=== PATIENT | male | born 1960 | race Caucasian/White ===

== ENCOUNTER 2022-01-26 15:31 | Emergency (ER) | payer OTHER, SELFPAY ==
[2022-01-26 16:10] VITALS: BP 126/67; PULSE 77; RESP 18; O2SAT 98; BMI 28.8
--- NOTE | 2022-01-26 16:12 | ECG_ITS ---
Test Reason : ALTERED MENTAL Blood Pressure : / mmHG Vent. Rate : 084 BPM Atrial Rate : 084 BPM P-R Int : 152 ms QRS Dur : 094 ms QT Int : 364 ms P-R-T Axes : 041 009 022 degrees QTc Int : 430 ms Normal sinus rhythm Normal ECG No previous ECGs available Referred By: Ramírez Stephen Electronically Signed By:AUREA GREGORIO MD
--- NOTE | 2022-01-26 16:14 | ED_ITS ---
HPI - Altered Mental Status General Chief Complaint: General Medical <Ramírez Stephen MD - Last Filed: 01/26/22 16:17> Stated Complaint: Lethargic/Diabetic <Ramírez Stephen MD - Last Filed: 01/26/22 16:17> Time Seen by Provider: 01/26/22 16:23 <Ramírez Stephen MD - Last Filed: 01/26/22 16:17> Source: patient <Dennis Rodriguez MD - Last Filed: 01/27/22 00:40> Mode of arrival: ambulatory <Dennis Rodriguez MD - Last Filed: 01/27/22 00:40> Limitations: no limitations <Dennis Rodriguez MD - Last Filed: 01/27/22 00:40> History of Present Illness HPI narrative: Patient history of diabetes insulin dependent takes 74 units of Lantus in the nighttime last night he took the insulin without eating supper, in the morning he took his metformin was at work confused lethargic brought by his co- worker patient does not remember how he came to the ER on arrival patient was drowsy blood sugar was only 35 in the triage patient was given OJ and dextrose 50 in few minutes patient back to normal but does not remember what happened to him no seizure activity no shortness of breath no nausea no vomiting no abdominal pain no chest pain shortness breath repeat blood sugar was 153 <Dennis Rodriguez MD - Last Filed: 01/27/22 00:40> Related Data Allergies/Adverse Reactions: Allergies Allergy/AdvReac Type Severity Reaction Status Date / Time No Known Allergies Allergy Verified 01/26/22 16:11 <Ramírez Stephen MD - Last Filed: 01/26/22 16:17> Review of Systems Review of Systems: Yes all other systems are reviewed and are negative <Dennis Rodriguez MD - Last Filed: 01/27/22 00:40> [facility] Social History Social History: Social History Advance Directives: No Advance Directives Information Provided: No <Ramírez Stephen MD - Last Filed: 01/26/22 16:17> Physical Exam ED Vital Signs: Vital Signs - 24 hr 01/26/22 16:10 01/26/22 18:00 Temperature 97.5 F Pulse Rate 77 84 Respiratory Rate 18 14 Blood Pressure 126/67 164/78 H Pulse Oximetry 98 94 Oxygen Delivery Method Room Air Room Air BMI result Body Mass Index 28.8 <Ramírez Stephen MD - Last Filed: 01/26/22 16:17> Vital Signs - 24 hr 01/26/22 16:10 01/26/22 18:00 Temperature 97.5 F Pulse Rate 77 84 Respiratory Rate 18 14 Blood Pressure 126/67 164/78 H Pulse Oximetry 98 94 Oxygen Delivery Method Room Air Room Air BMI result Body Mass Index 28.8 <Dennis Rodriguez MD - Last Filed: 01/27/22 00:40> Appearance: Alert. Oriented X3. No acute distress. Eyes: PERRLA, No Nystagmus ENT: Pharynx normal. Oral Mucosa moist Neck: Normal inspection. Neck supple. CVS: Normal heart rate and rhythm. Pulses normal. Respiratory: No respiratory distress. Equal air entry bilateral, no wheezing/rales/rhonchi Abdomen: Soft and nontender. Bowel sounds are present, no mass palpable, no CVA tenderness Skin: Skin warm and dry. Normal skin color. Normal skin turgor. Extremities: No lower extremity edema. No calf tenderness Neuro: Oriented X 3. No motor deficit. No sensory deficit.No cerebellar signs , cranial nerves II-XII intact <Dennis Rodriguez MD - Last Filed: 01/27/22 00:40> Course Reevaluation(s) Reevaluation #1: 61-year-old male history of diabetes brought in by his school or her for noticeable change mental status and becoming lethargic, in triage patient is disoriented, lethargic but arousable, patient cannot carry on meaningful conversation, blood sugar was checked was 35 in triage. no trauma was reported by the co-worker. Patient was able to drink orange juice in triage D 50 was ordered patient was transferred to room 4 in the ED. <Ramírez Stephen MD - Last Filed: 01/26/22 16:17> Time: 16:14 <Ramírez Stephen MD - Last Filed: 01/26/22 16:17> Medications Administered Discontinued Medications Generic Name Dose Route Start Last Admin Trade Name Freq PRN Reason Stop Dose Admin Dextrose 25 gm 01/26/22 16:11 01/26/22 16:26 Dextrose 50 % 25 Gm/50 Ml Syringe IVPUSH 01/26/22 16:12 25 gm ONCE ONE Administration Sodium Chloride 1,000 mls @ 999 mls/hr 01/26/22 16:11 01/26/22 19:21 Ns IV 01/26/22 17:11 Infused .Q1H1M ONE Infusion <Ramírez Stephen MD - Last Filed: 01/26/22 16:17> Medications Administered Discontinued Medications Generic Name Dose Route Start Last Admin Trade Name Sangita PRN Reason Stop Dose Admin Dextrose 25 gm 01/26/22 16:11 01/26/22 16:26 Dextrose 50 % 25 Gm/50 Ml Syringe IVPUSH 01/26/22 16:12 25 gm ONCE ONE Administration Sodium Chloride 1,000 mls @ 999 mls/hr 01/26/22 16:11 01/26/22 19:21 Ns IV 01/26/22 17:11 Infused .Q1H1M ONE Infusion <Dennis Rodriguez MD - Last Filed: 01/27/22 00:40> MDM - Altered Mental Status MDM Narrative Medical decision making narrative: 184Patient's co-worker came says that patient was little confused wobbly while walking no fall no seizures no nausea or vomiting patient confused does not know how he came to the ER at this time patient is feeling back to normal had food in the ER will discharge patient home friend will keep an eye on the patient and recheck blood sugar at home <Dennis Rodriguez MD - Last Filed: 01/27/22 00:40> Lab Data Attestation: I reviewed the patient's lab results. <Dennis Rodriguez MD - Last Filed: 01/27/22 00:40> Result diagrams: : 01/26/22 16:24 01/26/22 16:24 <Ramírez Stephen MD - Last Filed: 01/26/22 16:17> Labs: Lab Results 01/26/22 01/26/22 01/26/22 Range/Units 16:12 16:24 16:24 WBC 12.5 H (4.8-10.8) X10*3/uL RBC 4.66 (4.60-5.80) X10*6/uL Hgb 12.8 L (14.0-18.0) g/dl Hct 40.1 L (42.0-52.0) % MCV 86.1 (80.0-98.0) fL MCH 27.5 (27.0-33.0) pg MCHC 31.9 (31.0-36.0) g/dl RDW 14.4 (11.0-16.0) % Plt Count 398 (160-400) X10*3/uL MPV 9.8 (9.4-12.4) fL Immature Gran % (Auto) 0.5 H (0.0-0.4) % Neut % (Auto) 68.9 (45-73) % Lymph % (Auto) 19.7 L (20-40) % [place] % (Auto) 10.1 (2-11) % Eos % (Auto) 0.6 (0-4) % Baso % (Auto) 0.2 (0-2) % Lymph # (Auto) 2.5 (1.2-4.9) X10*3/uL [place] # (Auto) 1.3 H (0.1-1.2) X10*3/uL Eos # (Auto) 0.1 (0.0-0.4) X10*3/uL Baso # (Auto) 0.0 (0.0-0.2) X10*3/uL Abs Immat Gran (auto) 0.06 H (0.00-0.03) X10*3/uL Absolute Neuts (auto) 8.6 H (2.0-8.3) x10*3/uL Absolute Nucleated RBC 0.000 (0.0-0.012) X10*3/uL Nucleated RBC % (auto) 0.0 (0.0-0.2) /100WBC Sodium 141 (135-145) mmol/L Potassium 4.1 (3.3-5.1) mmol/L Chloride 105 (96-108) mmol/L Carbon Dioxide 24 (22-29) mmol/L Anion Gap 16 (12-20) BUN 39 H (9-16) mg/dL Creatinine 2.18 H (0.5-1.4) mg/dL Estim Creat Clear Calc 45.3 Estimated GFR 31 POC Glucose 35 L* (60-115) mg/dL Random Glucose 32 L* (60-115) mg/dL Calcium 8.9 (8.4-10.2) mg/dL Total Bilirubin 0.3 (0.0-1.0) mg/dL Direct Bilirubin < 0.2 (0.0-0.5) mg/dL AST 38 H (5-37) U/L ALT 36 (0-40) U/L Alkaline Phosphatase 78 (39-117) U/L Troponin I High Sens (<3.5-35.0) ng/L Total Protein 6.6 (6.5-8.0) g/dL Albumin 3.7 (3.5-5.0) g/dL Lipase 22 (8-78) U/L Urine Color Urine Appearance Urine pH (5.0-9.0) Ur Specific [place] (1.005-1.025) Urine Protein (Neg-Trace) mg/dL Urine Glucose (UA) (Negative) mg/dL Urine Ketones (Negative) mg/dL Urine Blood (Negative) Urine Nitrite (Negative) Ur Leukocyte Esterase (Negative) Urine RBC (0-2) /HPF Urine WBC (0-5) /HPF Ur Squamous Epith Cells (0-2) /HPF Urine Bacteria (None Seen) Hyaline Casts (0-2) /LPF COVID-19 (PEDRO) (Negative) COVID-19 Clin Com 01/26/22 01/26/22 01/26/22 Range/Units 16:24 16:38 18:13 WBC (4.8-10.8) X10*3/uL RBC (4.60-5.80) X10*6/uL Hgb (14.0-18.0) g/dl Hct (42.0-52.0) % MCV (80.0-98.0) fL MCH (27.0-33.0) pg MCHC (31.0-36.0) g/dl RDW (11.0-16.0) % Plt Count (160-400) X10*3/uL MPV (9.4-12.4) fL Immature Gran % (Auto) (0.0-0.4) % Neut % (Auto) (45-73) % Lymph % (Auto) (20-40) % [place] % (Auto) (2-11) % Eos % (Auto) (0-4) % Baso % (Auto) (0-2) % Lymph # (Auto) (1.2-4.9) X10*3/uL [place] # (Auto) (0.1-1.2) X10*3/uL Eos # (Auto) (0.0-0.4) X10*3/uL Baso # (Auto) (0.0-0.2) X10*3/uL Abs Immat Gran (auto) (0.00-0.03) X10*3/uL Absolute Neuts (auto) (2.0-8.3) x10*3/uL Absolute Nucleated RBC (0.0-0.012) X10*3/uL Nucleated RBC % (auto) (0.0-0.2) /100WBC Sodium (135-145) mmol/L Potassium (3.3-5.1) mmol/L Chloride (96-108) mmol/L Carbon Dioxide (22-29) mmol/L Anion Gap (12-20) BUN (9-16) mg/dL Creatinine (0.5-1.4) mg/dL Estim Creat Clear Calc Estimated GFR POC Glucose 153 H (60-115) mg/dL Random Glucose (60-115) mg/dL Calcium (8.4-10.2) mg/dL Total Bilirubin (0.0-1.0) mg/dL Direct Bilirubin (0.0-0.5) mg/dL AST (5-37) U/L ALT (0-40) U/L Alkaline Phosphatase (39-117) U/L Troponin I High Sens 10.1 (<3.5-35.0) ng/L Total Protein (6.5-8.0) g/dL Albumin (3.5-5.0) g/dL Lipase (8-78) U/L Urine Color Urine Appearance Urine pH (5.0-9.0) Ur Specific [place] (1.005-1.025) Urine Protein (Neg-Trace) mg/dL Urine Glucose (UA) (Negative) mg/dL Urine Ketones (Negative) mg/dL Urine Blood (Negative) Urine Nitrite (Negative) Ur Leukocyte Esterase (Negative) Urine RBC (0-2) /HPF Urine WBC (0-5) /HPF Ur Squamous Epith Cells (0-2) /HPF Urine Bacteria (None Seen) Hyaline Casts (0-2) /LPF COVID-19 (PEDRO) Negative (Negative) COVID-19 Clin Com See Note 01/26/22 01/26/22 01/26/22 Range/Units 18:13 18:53 19:14 WBC (4.8-10.8) X10*3/uL RBC (4.60-5.80) X10*6/uL Hgb (14.0-18.0) g/dl Hct (42.0-52.0) % MCV (80.0-98.0) fL MCH (27.0-33.0) pg MCHC (31.0-36.0) g/dl RDW (11.0-16.0) % Plt Count (160-400) X10*3/uL MPV (9.4-12.4) fL Immature Gran % (Auto) (0.0-0.4) % Neut % (Auto) (45-73) % Lymph % (Auto) (20-40) % Pershing % (Auto) (2-11) % Eos % (Auto) (0-4) % Baso % (Auto) (0-2) % Lymph # (Auto) (1.2-4.9) X10*3/uL [place] # (Auto) (0.1-1.2) X10*3/uL Eos # (Auto) (0.0-0.4) X10*3/uL Baso # (Auto) (0.0-0.2) X10*3/uL Abs Immat Gran (auto) (0.00-0.03) X10*3/uL Absolute Neuts (auto) (2.0-8.3) x10*3/uL Absolute Nucleated RBC (0.0-0.012) X10*3/uL Nucleated RBC % (auto) (0.0-0.2) /100WBC Sodium (135-145) mmol/L Potassium (3.3-5.1) mmol/L Chloride (96-108) mmol/L Carbon Dioxide (22-29) mmol/L Anion Gap (12-20) BUN (9-16) mg/dL Creatinine (0.5-1.4) mg/dL Estim Creat Clear Calc Estimated GFR POC Glucose 114 104 (60-115) mg/dL Random Glucose (60-115) mg/dL Calcium (8.4-10.2) mg/dL Total Bilirubin (0.0-1.0) mg/dL Direct Bilirubin (0.0-0.5) mg/dL AST (5-37) U/L ALT (0-40) U/L Alkaline Phosphatase (39-117) U/L Troponin I High Sens (<3.5-35.0) ng/L Total Protein (6.5-8.0) g/dL Albumin (3.5-5.0) g/dL Lipase (8-78) U/L Urine Color Yellow Urine Appearance Clear Urine pH 6.0 (5.0-9.0) Ur Specific [place] <= 1.005 (1.005-1.025) Urine Protein 100 (2+) H (Neg-Trace) mg/dL Urine Glucose (UA) Negative (Negative) mg/dL Urine Ketones Negative (Negative) mg/dL Urine Blood Small (1+) H (Negative) Urine Nitrite Negative (Negative) Ur Leukocyte Esterase Trace H (Negative) Urine RBC 0-2 (0-2) /HPF Urine WBC 0-5 (0-5) /HPF Ur Squamous Epith Cells 0-2 (0-2) /HPF Urine Bacteria None Seen (None Seen) Hyaline Casts 0-2 (0-2) /LPF COVID-19 (PEDRO) (Negative) COVID-19 Clin Com <Ramírez Stephen MD - Last Filed: 01/26/22 16:17> Lab Results 01/26/22 01/26/22 01/26/22 Range/Units 16:12 16:24 16:24 WBC 12.5 H (4.8-10.8) X10*3/uL RBC 4.66 (4.60-5.80) X10*6/uL Hgb 12.8 L (14.0-18.0) g/dl Hct 40.1 L (42.0-52.0) % MCV 86.1 (80.0-98.0) fL MCH 27.5 (27.0-33.0) pg MCHC 31.9 (31.0-36.0) g/dl RDW 14.4 (11.0-16.0) % Plt Count 398 (160-400) X10*3/uL MPV 9.8 (9.4-12.4) fL Immature Gran % (Auto) 0.5 H (0.0-0.4) % Neut % (Auto) 68.9 (45-73) % Lymph % (Auto) 19.7 L (20-40) % [place]hing % (Auto) 10.1 (2-11) % Eos % (Auto) 0.6 (0-4) % Baso % (Auto) 0.2 (0-2) % Lymph # (Auto) 2.5 (1.2-4.9) X10*3/uL [place] # (Auto) 1.3 H (0.1-1.2) X10*3/uL Eos # (Auto) 0.1 (0.0-0.4) X10*3/uL Baso # (Auto) 0.0 (0.0-0.2) X10*3/uL Abs Immat Gran (auto) 0.06 H (0.00-0.03) X10*3/uL Absolute Neuts (auto) 8.6 H (2.0-8.3) x10*3/uL Absolute Nucleated RBC 0.000 (0.0-0.012) X10*3/uL Nucleated RBC % (auto) 0.0 (0.0-0.2) /100WBC Sodium 141 (135-145) mmol/L Potassium 4.1 (3.3-5.1) mmol/L Chloride 105 (96-108) mmol/L Carbon Dioxide 24 (22-29) mmol/L Anion Gap 16 (12-20) BUN 39 H (9-16) mg/dL Creatinine 2.18 H (0.5-1.4) mg/dL Estim Creat Clear Calc 45.3 Estimated GFR 31 POC Glucose 35 L* (60-115) mg/dL Random Glucose 32 L* (60-115) mg/dL Calcium 8.9 (8.4-10.2) mg/dL Total Bilirubin 0.3 (0.0-1.0) mg/dL Direct Bilirubin < 0.2 (0.0-0.5) mg/dL AST 38 H (5-37) U/L ALT 36 (0-40) U/L Alkaline Phosphatase 78 (39-117) U/L Troponin I High Sens (<3.5-35.0) ng/L Total Protein 6.6 (6.5-8.0) g/dL Albumin 3.7 (3.5-5.0) g/dL Lipase 22 (8-78) U/L Urine Color Urine Appearance Urine pH (5.0-9.0) Ur Specific [place] (1.005-1.025) Urine Protein (Neg-Trace) mg/dL Urine Glucose (UA) (Negative) mg/dL Urine Ketones (Negative) mg/dL Urine Blood (Negative) Urine Nitrite (Negative) Ur Leukocyte Esterase (Negative) Urine RBC (0-2) /HPF Urine WBC (0-5) /HPF Ur Squamous Epith Cells (0-2) /HPF Urine Bacteria (None Seen) Hyaline Casts (0-2) /LPF COVID-19 (PEDRO) (Negative) COVID-19 Clin Com 01/26/22 01/26/22 01/26/22 Range/Units 16:24 16:38 18:13 WBC (4.8-10.8) X10*3/uL RBC (4.60-5.80) X10*6/uL Hgb (14.0-18.0) g/dl Hct (42.0-52.0) % MCV (80.0-98.0) fL MCH (27.0-33.0) pg MCHC (31.0-36.0) g/dl RDW (11.0-16.0) % Plt Count (160-400) X10*3/uL MPV (9.4-12.4) fL Immature Gran % (Auto) (0.0-0.4) % Neut % (Auto) (45-73) % Lymph % (Auto) (20-40) % [place] % (Auto) (2-11) % Eos % (Auto) (0-4) % Baso % (Auto) (0-2) % Lymph # (Auto) (1.2-4.9) X10*3/uL [place] # (Auto) (0.1-1.2) X10*3/uL Eos # (Auto) (0.0-0.4) X10*3/uL Baso # (Auto) (0.0-0.2) X10*3/uL Abs Immat Gran (auto) (0.00-0.03) X10*3/uL Absolute Neuts (auto) (2.0-8.3) x10*3/uL Absolute Nucleated RBC (0.0-0.012) X10*3/uL Nucleated RBC % (auto) (0.0-0.2) /100WBC Sodium (135-145) mmol/L Potassium (3.3-5.1) mmol/L Chloride (96-108) mmol/L Carbon Dioxide (22-29) mmol/L Anion Gap (12-20) BUN (9-16) mg/dL Creatinine (0.5-1.4) mg/dL Estim Creat Clear Calc Estimated GFR POC Glucose 153 H (60-115) mg/dL Random Glucose (60-115) mg/dL Calcium (8.4-10.2) mg/dL Total Bilirubin (0.0-1.0) mg/dL Direct Bilirubin (0.0-0.5) mg/dL AST (5-37) U/L ALT (0-40) U/L Alkaline Phosphatase (39-117) U/L Troponin I High Sens 10.1 (<3.5-35.0) ng/L Total Protein (6.5-8.0) g/dL Albumin (3.5-5.0) g/dL Lipase (8-78) U/L Urine Color Urine Appearance Urine pH (5.0-9.0) Ur Specific [place] (1.005-1.025) Urine Protein (Neg-Trace) mg/dL Urine Glucose (UA) (Negative) mg/dL Urine Ketones (Negative) mg/dL Urine Blood (Negative) Urine Nitrite (Negative) Ur Leukocyte Esterase (Negative) Urine RBC (0-2) /HPF Urine WBC (0-5) /HPF Ur Squamous Epith Cells (0-2) /HPF Urine Bacteria (None Seen) Hyaline Casts (0-2) /LPF COVID-19 (PEDRO) Negative (Negative) COVID-19 Clin Com See Note 01/26/22 01/26/22 01/26/22 Range/Units 18:13 18:53 19:14 WBC (4.8-10.8) X10*3/uL RBC (4.60-5.80) X10*6/uL Hgb (14.0-18.0) g/dl Hct (42.0-52.0) % MCV (80.0-98.0) fL MCH (27.0-33.0) pg MCHC (31.0-36.0) g/dl RDW (11.0-16.0) % Plt Count (160-400) X10*3/uL MPV (9.4-12.4) fL Immature Gran % (Auto) (0.0-0.4) % Neut % (Auto) (45-73) % Lymph % (Auto) (20-40) % [place] % (Auto) (2-11) % Eos % (Auto) (0-4) % Baso % (Auto) (0-2) % Lymph # (Auto) (1.2-4.9) X10*3/uL [place] # (Auto) (0.1-1.2) X10*3/uL Eos # (Auto) (0.0-0.4) X10*3/uL Baso # (Auto) (0.0-0.2) X10*3/uL Abs Immat Gran (auto) (0.00-0.03) X10*3/uL Absolute Neuts (auto) (2.0-8.3) x10*3/uL Absolute Nucleated RBC (0.0-0.012) X10*3/uL Nucleated RBC % (auto) (0.0-0.2) /100WBC Sodium (135-145) mmol/L Potassium (3.3-5.1) mmol/L Chloride (96-108) mmol/L Carbon Dioxide (22-29) mmol/L Anion Gap (12-20) BUN (9-16) mg/dL Creatinine (0.5-1.4) mg/dL Estim Creat Clear Calc Estimated GFR POC Glucose 114 104 (60-115) mg/dL Random Glucose (60-115) mg/dL Calcium (8.4-10.2) mg/dL Total Bilirubin (0.0-1.0) mg/dL Direct Bilirubin (0.0-0.5) mg/dL AST (5-37) U/L ALT (0-40) U/L Alkaline Phosphatase (39-117) U/L Troponin I High Sens (<3.5-35.0) ng/L Total Protein (6.5-8.0) g/dL Albumin (3.5-5.0) g/dL Lipase (8-78) U/L Urine Color Yellow Urine Appearance Clear Urine pH 6.0 (5.0-9.0) Ur Specific [place] <= 1.005 (1.005-1.025) Urine Protein 100 (2+) H (Neg-Trace) mg/dL Urine Glucose (UA) Negative (Negative) mg/dL Urine Ketones Negative (Negative) mg/dL Urine Blood Small (1+) H (Negative) Urine Nitrite Negative (Negative) Ur Leukocyte Esterase Trace H (Negative) Urine RBC 0-2 (0-2) /HPF Urine WBC 0-5 (0-5) /HPF Ur Squamous Epith Cells 0-2 (0-2) /HPF Urine Bacteria None Seen (None Seen) Hyaline Casts 0-2 (0-2) /LPF COVID-19 (PEDRO) (Negative) COVID-19 Clin Com <Dennis Rodriguez MD - Last Filed: 01/27/22 00:40> Discharge Plan Discharge Clinical Impression: Diabetic hypoglycemia <Ramírez Stephen MD - Last Filed: 01/26/22 16:17> Patient Disposition: Home, Self-Care <Ramírez Stephen MD - Last Filed: 01/26/22 16:17> Instructions: Hypoglycemia in a Person with Diabetes (ED) <Ramírez Stephen MD - Last Filed: 01/26/22 16:17> Additional Instructions: Eat well while taking insulin if you are not eating decrease the dose to half and keep an eye on blood sugar Have dinner tonight recheck your sugar every 4-6 hours tonight Do not take your insulin tonight unless blood sugar is more than 200 <Ramírez Stephen MD - Last Filed: 01/26/22 16:17> Interventions: ED Discharge Assessment Last Done: 01/26/22 19:22 <Ramírez Stephen MD - Last Filed: 01/26/22 16:17> Discharge Date/Time: 01/26/22 19:22 <Ramírez Stephen MD - Last Filed: 01/26/22 16:17>
[2022-01-26 16:26] LABS: Glucose, Whole Blood 35 mg/dL (60-115)
[2022-01-26] MEDS: 0.9 % Sodium Chloride 1,000 ML 999 ML IV (16:26)
[2022-01-26] MEDS: Dextrose 50 % 25 GM/50 ML SYRINGE IVPUSH (16:26)
[2022-01-26 16:28] LABS: MANUAL DIFF FLAG NO
--- NOTE | 2022-01-26 16:28 | PC.NURSE ---
Pt POC 35 in triage. [place] juice given. IV established, 20 right AC labs drawn and sent. D50 given. Pt becoming more alert and oriented at this time, speaking in full sentences.
[2022-01-26 16:30] LABS: Basophils Percent Auto 0.2 % (0-2); Eosinophils Absolute Auto 0.1 X10*3/uL (0.0-0.4); Eosinophils Percent Auto 0.6 % (0-4); Hematocrit 40.1 % (42.0-52.0); Hemoglobin 12.8 g/dl (14.0-18.0); Imm Gran Abs Auto 0.06 X10*3/uL (0.00-0.03); Imm Gran Pct Auto 0.5 % (0.0-0.4); Lymphocytes Absolute Auto 2.5 X10*3/uL (1.2-4.9); Lymphocytes Percent Auto 19.7 % (20-40); Mean Corpuscular HGB Conc 31.9 g/dl (31.0-36.0); Mean Corpuscular Hemoglobin 27.5 pg (27.0-33.0); Mean Corpuscular Volume 86.1 fL (80.0-98.0); Mean Platelet Volume 9.8 fL (9.4-12.4); Monocytes Absolute Auto 1.3 X10*3/uL (0.1-1.2); Monocytes Percent Auto 10.1 % (2-11); Neutrophils Absolute Auto 8.6 x10*3/uL (2.0-8.3); Neutrophils Percent Auto 68.9 % (45-73); Platelet Count 398 X10*3/uL (160-400); Red Blood Count 4.66 X10*6/uL (4.60-5.80); Red Cell Distribution Width 14.4 % (11.0-16.0); White Blood Count 12.5 X10*3/uL (4.8-10.8)
--- NOTE | 2022-01-26 16:41 | PC.NURSE ---
Pt alert and oriented x4. Eating crackers and drinking orange juice. Able to speak in full clear sentences.
[2022-01-26 16:42] LABS: Glucose, Whole Blood 153 mg/dL (60-115)
[2022-01-26 17:05] LABS: Troponin-I High Sensitivity 10.1 ng/L (<3.5-35.0)
[2022-01-26 17:09] LABS: Alanine Aminotransferase 36 U/L (0-40); Albumin Level 3.7 g/dL (3.5-5.0); Alkaline Phosphatase 78 U/L (39-117); Anion Gap 16 (12-20); Aspartate Amino Transferase 38 U/L (5-37); Bilirubin Direct < 0.2 mg/dL (0.0-0.5); Bilirubin Total 0.3 mg/dL (0.0-1.0); Blood Urea Nitrogen 39 mg/dL (9-16); Calcium 8.9 mg/dL (8.4-10.2); Carbon Dioxide 24 mmol/L (22-29); Chloride 105 mmol/L (96-108); Creatinine Clr Calc Pharmacy 45.3; Estimated Glomerular Filt Rate 31; Glucose Random 32 mg/dL (60-115); Potassium 4.1 mmol/L (3.3-5.1); Sodium 141 mmol/L (135-145); Total Protein 6.6 g/dL (6.5-8.0)
[2022-01-26 17:21] LABS: Lipase 22 U/L (8-78)
[2022-01-26 18:00] VITALS: BP 164/78; PULSE 84; RESP 14; TEMP 36.4; O2SAT 94
[2022-01-26 18:23] LABS: Appearance Urine Clear; Color Urine Yellow; Glucose Urine UA Negative (Negative); Leukocyte Esterase Urine Trace (Negative); Nitrite Urine Negative (Negative); Specific Gravity - Urine <= 1.005 (1.005-1.025); UMIC TRIGGER UACC YES; Urine Blood Small (1+) (Negative); Urine Ketones Negative (Negative); Urine Protein 100 (2+) mg/dL (Neg-Trace)
[2022-01-26 18:35] LABS: COVID-19 Test Negative (Negative); IDNOW Serial# 16C4AD1C
[2022-01-26 18:38] LABS: Bacteria Urine None Seen (None Seen); Hyaline Casts Urine 0-2 /LPF (0-2); RBC Urine 0-2 /HPF (0-2); Squamous Epithelial Cell Urine 0-2 /HPF (0-2); WBC Urine 0-5 /HPF (0-5)
[2022-01-26 18:57] LABS: Glucose, Whole Blood 114 mg/dL (60-115)
[2022-01-26 19:42] LABS: Glucose, Whole Blood 104 mg/dL (60-115)
== END 2022-01-26 19:22 | disposition home or self-care (01) ==
PROVIDERS: Emergency Medicine; Emergency Provider Internal Medicine
DX: E11.649 Type 2 diabetes mellitus with hypoglycemia without coma (principal); Z20.822 Contact with and (suspected) exposure to COVID-19
CPT/HCPCS: 36415; 80048; 80076; 81001; 82947; 83690; 84484; 85025; 87635; 93005; 96361; 96374; 99284